=== PATIENT | male | born 1965 | race Caucasian/White ===

== ENCOUNTER 2019-01-11 12:03 | Emergency (ER) | payer OTHER ==
[~2019-01-11] VITALS: Ht 180.3 cm; Wt 122.5 kg
[~2019-01-11 12:03] MED LIST: KEFLEX500 MG PO; NORCO 5-325 TA1 EACH PO
[2019-01-11] MEDS ORDERED: LIPITOR10 MG PO (12:14)
[2019-01-11] MEDS ORDERED: CHILDREN'S ASPI81 M1 PO (12:14)
[2019-01-11] MEDS ORDERED: ROBAXIN 750 MG750 MG PO (15:14)
[2019-01-11] MEDS ORDERED: ONDANSETRON HCL4 M2 PO (15:14)
[2019-01-11 15:26] VITALS: BP 141/97
== END 2019-01-11 15:28 | disposition home or self-care (01) ==
LOC: M.ERS 12:03
DX: S06.0X0A Concussion without loss of consciousness, initial encounter (principal); S16.1XXA Strain of muscle, fascia and tendon at neck level, initial encounter; M51.34 Other intervertebral disc degeneration, thoracic region; I10 Essential (primary) hypertension; Z88.5 Allergy status to narcotic agent; Z88.0 Allergy status to penicillin; W22.8XXA Striking against or struck by other objects, initial encounter; Y92.89 Other specified places as the place of occurrence of the external cause; Y93.89 Activity, other specified; Y99.8 Other external cause status